=== PATIENT | male | born 1950 | race Caucasian/White ===

== ENCOUNTER 2022-02-25 12:55 | Outpatient (CLI) | payer OTHER | END 2022-02-25 12:56 | disposition home or self-care (01) | LOC: CSHMRI 12:55 | PROVIDERS: ATTEND Surgery | DX: M54.12 Radiculopathy, cervical region (principal); S46.811A Strain of other muscles, fascia and tendons at shoulder and upper arm level, right arm, initial encounter; M19.011 Primary osteoarthritis, right shoulder; M62.511 Muscle wasting and atrophy, not elsewhere classified, right shoulder; M47.812 Spondylosis without myelopathy or radiculopathy, cervical region; Z98.890 Other specified postprocedural states | CPT/HCPCS: 72125 ==